=== PATIENT | female | born 1960 | race Caucasian/White ===

== ENCOUNTER 2016-09-15 20:26 | Inpatient (IN) | payer MEDICAID ==
[~2016-09-15] VITALS: Ht 149.9 cm; Wt 57.6 kg
[2016-09-15] MEDS ORDERED: DUONEB INH ONE (21:29)
[2016-09-15] MEDS ORDERED: SODIUM CHLORIDE 0.9% 250 ML IV ONE (23:41)
[2016-09-15] MEDS ORDERED: METHYLPRED SOD SUCC 125 MG/2 ML VIAL ONE (23:41)
[2016-09-15] MEDS ORDERED: AZITHROMYCIN 500 MG VIAL IV ONE (23:41)
[2016-09-15] MEDS ORDERED: NEB-ALBUTEROL 2.5 MG/3 ML INH ONE ×2 (23:43)
[2016-09-16] VITALS (8 sets, daily range): BP systolic 126–152; RESP 16–20; TEMP 97.7–98.2; Ht 149.9 cm; Wt 57.6 kg
[2016-09-16] MEDS ORDERED: NEB-ALBUTEROL 2.5 MG/3 ML INH PRN (03:55)
[2016-09-16] MEDS ORDERED: MAG HYDROX 30 ML UDC PO PRN (03:55)
[2016-09-16] MEDS ORDERED: BENZONATATE 100 MG CAP PO PRN (03:55)
[2016-09-16] MEDS ORDERED: MORPHINE 2 MG/ML SYR IV PRN (03:55)
[2016-09-16] MEDS ORDERED: ONDANSETRON 4 MG VIAL IV PRN (03:55)
[2016-09-16] MEDS ORDERED: BISACODYL 10 MG SUPP RECTAL PRN (03:55)
[2016-09-16] MEDS ORDERED: ACETAMINOPHEN 325 MG TAB PO PRN (03:55)
[2016-09-16] MEDS ORDERED: SALINE FLUSH 10 ML FLUSH PRN (03:55)
[2016-09-16] MEDS: NEB-ATROVENT INH SCH ×4 (05:03→23:32)
[2016-09-16] MEDS: NEB-BUDESONIDE 0.5 MG INH SCH ×2 (05:03→20:31)
[2016-09-16] MEDS: SODIUM CHLORIDE 0.9% FLUSH BAG 500 ML IV SCH (05:34)
[2016-09-16] MEDS: PANTOPRAZOLE 40 MG TAB PO SCH (06:31)
[2016-09-16] MEDS: SALINE FLUSH 10 ML FLUSH SCH ×2 (08:00→19:55)
[2016-09-16] MEDS: LEVOTHYROXINE 0.05 MG TAB PO SCH (08:02)
[2016-09-16] MEDS: LEVOFLOXACIN 750 MG/150 ML 150 ML IV SCH (08:03)
[2016-09-16] MEDS ORDERED: LEVOFLOXACIN 750 MG/150 ML 150 ML IV SCH (09:00)
[2016-09-16] MEDS: BUPROPION XL 150 MG TAB PO SCH (09:19)
[2016-09-16] MEDS: amLODIPine 5 MG TAB PO SCH (09:19)
[2016-09-16] MEDS: ASPIRIN EC 81 MG TAB PO SCH (09:19)
[2016-09-16] MEDS: GABAPENTIN 400 MG CAP PO SCH ×4 (09:19→19:54)
[2016-09-16] MEDS: Hydrocodone/APAP 10/325 MG TAB PO PRN ×3 (12:05→23:36)
[2016-09-16] MEDS: SODIUM CHLORIDE 0.9% 1,000 ML IV SCH ×2 (12:39→16:58)
[2016-09-16] MEDS: LORAZEPAM 0.5 MG TAB PO PRN (15:36)
[2016-09-17] VITALS (7 sets, daily range): BP systolic 126–165; RESP 16–18; TEMP 97.3–97.8
[2016-09-17] MEDS: SODIUM CHLORIDE 0.9% 1,000 ML IV SCH (01:42)
[2016-09-17] MEDS: PANTOPRAZOLE 40 MG TAB PO SCH (06:12)
[2016-09-17] MEDS: SODIUM CHLORIDE 0.9% FLUSH BAG 500 ML IV SCH (06:12)
[2016-09-17] MEDS: NEB-ATROVENT INH SCH ×3 (07:16→19:13)
[2016-09-17] MEDS: NEB-BUDESONIDE 0.5 MG INH SCH ×2 (07:16→19:13)
[2016-09-17] MEDS: amLODIPine 5 MG TAB PO SCH (08:09)
[2016-09-17] MEDS: GABAPENTIN 400 MG CAP PO SCH ×4 (08:09→22:10)
[2016-09-17] MEDS: BUPROPION XL 150 MG TAB PO SCH (08:09)
[2016-09-17] MEDS: ASPIRIN EC 81 MG TAB PO SCH (08:09)
[2016-09-17] MEDS: LEVOTHYROXINE 0.05 MG TAB PO SCH (08:09)
[2016-09-17] MEDS: SALINE FLUSH 10 ML FLUSH SCH ×2 (08:10→22:12)
[2016-09-17] MEDS: Hydrocodone/APAP 10/325 MG TAB PO PRN ×4 (08:10→22:11)
[2016-09-17] MEDS: NYSTATIN 500,000 UNITS/5 ML SUSP SWISH.SWAL SCH ×3 (15:13→22:09)
[2016-09-17] MEDS: LORAZEPAM 0.5 MG TAB PO PRN (15:56)
[2016-09-18] MEDS: NEB-ATROVENT INH SCH ×5 (00:09→23:30)
[2016-09-18] MEDS: ALU/MAG/SIM 30 ML UDC PO PRN (00:36)
[2016-09-18] MEDS: Hydrocodone/APAP 10/325 MG TAB PO PRN ×5 (02:56→23:15)
[2016-09-18 03:47] VITALS: BP_SYST 141; RESP 18; TEMP 97.6
[2016-09-18] MEDS: NEB-BUDESONIDE 0.5 MG INH SCH ×2 (06:34→19:38)
[2016-09-18] MEDS: SODIUM CHLORIDE 0.9% FLUSH BAG 500 ML IV SCH (06:49)
[2016-09-18] MEDS: PANTOPRAZOLE 40 MG TAB PO SCH (06:49)
[2016-09-18 07:34] VITALS: BP_SYST 149; RESP 20; TEMP 97.3
[2016-09-18] MEDS: LEVOFLOXACIN 750 MG/150 ML 150 ML IV SCH (08:21)
[2016-09-18] MEDS: BUPROPION XL 150 MG TAB PO SCH (08:22)
[2016-09-18] MEDS: SALINE FLUSH 10 ML FLUSH SCH ×2 (08:22→20:15)
[2016-09-18] MEDS: GABAPENTIN 400 MG CAP PO SCH ×4 (08:22→20:14)
[2016-09-18] MEDS: amLODIPine 5 MG TAB PO SCH (08:23)
[2016-09-18] MEDS: NYSTATIN 500,000 UNITS/5 ML SUSP SWISH.SWAL SCH ×4 (08:23→20:14)
[2016-09-18] MEDS: ASPIRIN EC 81 MG TAB PO SCH (08:23)
[2016-09-18] MEDS: LEVOTHYROXINE 0.05 MG TAB PO SCH (08:23)
[2016-09-18 11:10] VITALS: BP_SYST 124; RESP 16; TEMP 97.4
[2016-09-18 15:50] VITALS: BP_SYST 138; RESP 18; TEMP 97.4
[2016-09-18] MEDS: LORAZEPAM 0.5 MG TAB PO PRN (16:52)
[2016-09-18 19:15] VITALS: BP_SYST 126; RESP 20; TEMP 97.7
[2016-09-18 23:30] VITALS: BP_SYST 121; RESP 16; TEMP 97.3
[2016-09-19 03:07] VITALS: BP_SYST 122; RESP 18; TEMP 97.9
[2016-09-19] MEDS: Hydrocodone/APAP 10/325 MG TAB PO PRN ×4 (03:22→18:50)
[2016-09-19] MEDS: SODIUM CHLORIDE 0.9% FLUSH BAG 500 ML IV SCH (06:03)
[2016-09-19] MEDS: PANTOPRAZOLE 40 MG TAB PO SCH (06:07)
[2016-09-19 07:40] VITALS: BP_SYST 154; RESP 20; TEMP 97.4
[2016-09-19] MEDS: NEB-BUDESONIDE 0.5 MG INH SCH ×2 (07:57→19:55)
[2016-09-19] MEDS: NEB-ATROVENT INH SCH ×4 (07:57→23:39)
[2016-09-19] MEDS: SALINE FLUSH 10 ML FLUSH SCH ×2 (08:11→20:30)
[2016-09-19] MEDS: LEVOTHYROXINE 0.05 MG TAB PO SCH (08:12)
[2016-09-19] MEDS: GABAPENTIN 400 MG CAP PO SCH ×4 (08:12→20:29)
[2016-09-19] MEDS: ASPIRIN EC 81 MG TAB PO SCH (08:12)
[2016-09-19] MEDS: amLODIPine 5 MG TAB PO SCH (08:12)
[2016-09-19] MEDS: BUPROPION XL 150 MG TAB PO SCH (08:13)
[2016-09-19] MEDS: NYSTATIN 500,000 UNITS/5 ML SUSP SWISH.SWAL SCH ×4 (08:13→20:30)
[2016-09-19 11:46] VITALS: BP_SYST 125; RESP 18; TEMP 97.3
[2016-09-19 15:32] VITALS: BP_SYST 118; RESP 18; TEMP 97.4
[2016-09-19 19:32] VITALS: BP_SYST 143; RESP 20; TEMP 97.9
[2016-09-19] MEDS: NEB-NACL 3% 4 ML NEBU INH SCH ×2 (19:57→23:39)
[2016-09-19] MEDS: PSEUDOEPHEDRINE PO SCH (20:29)
[2016-09-19] MEDS: ALU/MAG/SIM 30 ML UDC PO PRN (20:29)
[2016-09-19] MEDS: MONTELUKAST 10 MG TAB PO SCH (20:29)
[2016-09-19] MEDS: FEXOFENADINE PO SCH (20:29)
[2016-09-19] MEDS ORDERED: MISSING DOSE XX ONE (20:40)
[2016-09-19 23:53] VITALS: BP_SYST 112; RESP 20; TEMP 97.6
[2016-09-20] MEDS: Hydrocodone/APAP 10/325 MG TAB PO PRN ×6 (00:18→22:47)
[2016-09-20] MEDS: BISACODYL EC 5 MG TAB PO PRN (00:18)
[2016-09-20 03:56] VITALS: BP_SYST 113; RESP 18; TEMP 97.8
[2016-09-20] MEDS: PANTOPRAZOLE 40 MG TAB PO SCH (04:44)
[2016-09-20] MEDS: SODIUM CHLORIDE 0.9% FLUSH BAG 500 ML IV SCH (04:45)
[2016-09-20] MEDS: NEB-BUDESONIDE 0.5 MG INH SCH ×2 (07:43→18:03)
[2016-09-20] MEDS: NEB-NACL 3% 4 ML NEBU INH SCH ×3 (07:43→18:03)
[2016-09-20] MEDS: NEB-ATROVENT INH SCH ×4 (07:43→23:14)
[2016-09-20 08:03] VITALS: BP_SYST 126; RESP 20; TEMP 98
[2016-09-20] MEDS: SALINE FLUSH 10 ML FLUSH SCH ×2 (08:49→20:46)
[2016-09-20] MEDS: LEVOFLOXACIN 750 MG/150 ML 150 ML IV SCH (08:50)
[2016-09-20] MEDS: GABAPENTIN 400 MG CAP PO SCH ×4 (08:51→20:45)
[2016-09-20] MEDS: NYSTATIN 500,000 UNITS/5 ML SUSP SWISH.SWAL SCH ×4 (08:52→20:44)
[2016-09-20] MEDS: ASPIRIN EC 81 MG TAB PO SCH (08:52)
[2016-09-20] MEDS: BUPROPION XL 150 MG TAB PO SCH (08:52)
[2016-09-20] MEDS: FEXOFENADINE PO SCH ×2 (08:53→20:45)
[2016-09-20] MEDS: PSEUDOEPHEDRINE PO SCH ×2 (08:53→20:45)
[2016-09-20] MEDS: LEVOTHYROXINE 0.05 MG TAB PO SCH (08:53)
[2016-09-20] MEDS: amLODIPine 5 MG TAB PO SCH (08:53)
[2016-09-20] MEDS: LORAZEPAM 0.5 MG TAB PO PRN ×2 (10:55→22:43)
[2016-09-20] MEDS ORDERED: MISSING DOSE XX ONE ×3 (11:05→14:15)
[2016-09-20 11:17] VITALS: BP_SYST 113; RESP 16; TEMP 97.6
[2016-09-20] MEDS: METHYLPRED SOD SUCC 40 MG VIAL IV SCH ×3 (11:59→23:15)
[2016-09-20] MEDS ORDERED: NON-FORMULARY MEDICATION PO PRN (14:25)
[2016-09-20] MEDS ORDERED: *PINK BRACELET XX ONE (14:35)
[2016-09-20] MEDS: LINZESS 290 MCG PO PRN (14:37)
[2016-09-20 15:42] VITALS: BP_SYST 125; RESP 20; TEMP 98.2
[2016-09-20] MEDS: ALU/MAG/SIM 30 ML UDC PO PRN (16:18)
[2016-09-20 19:34] VITALS: BP_SYST 104; RESP 20; TEMP 97.5
[2016-09-20] MEDS: *HOME MEDS IN MED CART XX SCH (20:00)
[2016-09-20] MEDS: MONTELUKAST 10 MG TAB PO SCH (20:45)
[2016-09-20 22:55] VITALS: BP_SYST 125; RESP 18; TEMP 97.5
[2016-09-21] MEDS: NEB-NACL 3% 4 ML NEBU INH SCH ×5 (00:30→23:39)
[2016-09-21] MEDS: Hydrocodone/APAP 10/325 MG TAB PO PRN ×4 (02:50→18:33)
[2016-09-21 04:01] VITALS: BP_SYST 126; RESP 20; TEMP 97.3
[2016-09-21] MEDS: SODIUM CHLORIDE 0.9% FLUSH BAG 500 ML IV SCH (05:16)
[2016-09-21] MEDS: METHYLPRED SOD SUCC 40 MG VIAL IV SCH ×4 (05:16→23:09)
[2016-09-21] MEDS: PANTOPRAZOLE 40 MG TAB PO SCH (05:21)
[2016-09-21 07:06] VITALS: BP_SYST 119; RESP 16; TEMP 97.3
[2016-09-21] MEDS: NEB-ATROVENT INH SCH ×4 (07:22→23:39)
[2016-09-21] MEDS: NEB-BUDESONIDE 0.5 MG INH SCH ×2 (07:22→18:53)
[2016-09-21] MEDS: *HOME MEDS IN MED CART XX SCH ×2 (08:00→20:00)
[2016-09-21] MEDS: ASPIRIN EC 81 MG TAB PO SCH (09:46)
[2016-09-21] MEDS: GABAPENTIN 400 MG CAP PO SCH ×4 (09:46→20:16)
[2016-09-21] MEDS: amLODIPine 5 MG TAB PO SCH (09:46)
[2016-09-21] MEDS: PSEUDOEPHEDRINE PO SCH ×2 (09:46→20:16)
[2016-09-21] MEDS: BUPROPION XL 150 MG TAB PO SCH (09:46)
[2016-09-21] MEDS: BISACODYL EC 5 MG TAB PO PRN (09:46)
[2016-09-21] MEDS: FEXOFENADINE PO SCH ×2 (09:46→20:16)
[2016-09-21] MEDS: LEVOTHYROXINE 0.05 MG TAB PO SCH (09:46)
[2016-09-21] MEDS: SALINE FLUSH 10 ML FLUSH SCH ×2 (09:47→20:16)
[2016-09-21] MEDS: NYSTATIN 500,000 UNITS/5 ML SUSP SWISH.SWAL SCH ×4 (09:48→20:16)
[2016-09-21] MEDS: LINZESS 290 MCG PO PRN (09:49)
[2016-09-21 11:14] VITALS: BP_SYST 106; RESP 16; TEMP 98.1
[2016-09-21] MEDS: ALU/MAG/SIM 30 ML UDC PO PRN ×2 (15:00→18:32)
[2016-09-21 15:03] VITALS: BP_SYST 104; RESP 20; TEMP 97.9
[2016-09-21 19:53] VITALS: BP_SYST 134; RESP 20; TEMP 98.1
[2016-09-21] MEDS: MONTELUKAST 10 MG TAB PO SCH (20:16)
[2016-09-21] MEDS ORDERED: NEB-Levalbuterol 0.31 MG/3 ML NEBU INH PRN (21:40)
[2016-09-21] MEDS: LORAZEPAM 0.5 MG TAB PO PRN (23:08)
[2016-09-22 00:09] VITALS: BP_SYST 126; RESP 20; TEMP 97.7
[2016-09-22 04:00] VITALS: BP_SYST 149; RESP 18; TEMP 97.4
[2016-09-22] MEDS: METHYLPRED SOD SUCC 40 MG VIAL IV SCH ×4 (06:04→23:56)
[2016-09-22] MEDS: PANTOPRAZOLE 40 MG TAB PO SCH (06:04)
[2016-09-22] MEDS: SODIUM CHLORIDE 0.9% FLUSH BAG 500 ML IV SCH (06:04)
[2016-09-22] MEDS ORDERED: PHARMACY TO DOSE VANCOMYCIN IV SCH (07:20)
[2016-09-22] MEDS: NEB-ATROVENT INH SCH ×4 (07:28→23:29)
[2016-09-22] MEDS: NEB-BUDESONIDE 0.5 MG INH SCH ×2 (07:28→19:31)
[2016-09-22] MEDS: NEB-NACL 3% 4 ML NEBU INH SCH ×4 (07:29→23:30)
[2016-09-22 07:52] VITALS: BP_SYST 128; RESP 20; TEMP 97.1
[2016-09-22] MEDS: *HOME MEDS IN MED CART XX SCH ×2 (08:00→19:46)
[2016-09-22] MEDS: SALINE FLUSH 10 ML FLUSH SCH ×2 (08:39→19:42)
[2016-09-22] MEDS: VANCOMYCIN 750 MG in SODIUM CHLORIDE 0.9% 250 ML IV SCH ×2 (08:40→19:42)
[2016-09-22] MEDS: BUPROPION XL 150 MG TAB PO SCH (08:40)
[2016-09-22] MEDS: amLODIPine 5 MG TAB PO SCH (08:41)
[2016-09-22] MEDS: LEVOTHYROXINE 0.05 MG TAB PO SCH (08:41)
[2016-09-22] MEDS: FEXOFENADINE PO SCH ×2 (08:41→21:22)
[2016-09-22] MEDS: NYSTATIN 500,000 UNITS/5 ML SUSP SWISH.SWAL SCH ×4 (08:41→21:22)
[2016-09-22] MEDS: GABAPENTIN 400 MG CAP PO SCH ×4 (08:41→21:22)
[2016-09-22] MEDS: ASPIRIN EC 81 MG TAB PO SCH (08:41)
[2016-09-22] MEDS: PSEUDOEPHEDRINE PO SCH ×2 (08:41→21:22)
[2016-09-22] MEDS: Hydrocodone/APAP 10/325 MG TAB PO PRN ×3 (09:11→19:41)
[2016-09-22 11:38] VITALS: BP_SYST 134; RESP 20; TEMP 97.1
[2016-09-22] MEDS: LEVOFLOXACIN 750 MG/150 ML 150 ML IV SCH (12:25)
[2016-09-22] MEDS: LORAZEPAM 0.5 MG TAB PO PRN ×2 (14:24→21:22)
[2016-09-22 16:20] VITALS: BP_SYST 130; RESP 20; TEMP 96.6
[2016-09-22] MEDS: ALU/MAG/SIM 30 ML UDC PO PRN (17:03)
[2016-09-22 20:36] VITALS: BP_SYST 136; RESP 20; TEMP 97.8
[2016-09-22] MEDS: MONTELUKAST 10 MG TAB PO SCH (21:23)
[2016-09-23] VITALS (7 sets, daily range): BP systolic 122–146; RESP 16–20; TEMP 97.3–98.3
[2016-09-23] MEDS: SODIUM CHLORIDE 0.9% FLUSH BAG 500 ML IV SCH (05:07)
[2016-09-23] MEDS: Hydrocodone/APAP 10/325 MG TAB PO PRN ×4 (05:08→20:40)
[2016-09-23] MEDS: METHYLPRED SOD SUCC 40 MG VIAL IV SCH ×2 (06:01→12:50)
[2016-09-23] MEDS: PANTOPRAZOLE 40 MG TAB PO SCH (06:02)
[2016-09-23] MEDS: NEB-BUDESONIDE 0.5 MG INH SCH ×2 (08:00→18:55)
[2016-09-23] MEDS: NEB-NACL 3% 4 ML NEBU INH SCH ×4 (08:00→23:08)
[2016-09-23] MEDS: NEB-ATROVENT INH SCH ×4 (08:00→23:08)
[2016-09-23] MEDS: *HOME MEDS IN MED CART XX SCH ×2 (08:00→20:00)
[2016-09-23] MEDS ORDERED: MISSING DOSE XX ONE ×3 (08:05→19:55)
[2016-09-23] MEDS: NYSTATIN 500,000 UNITS/5 ML SUSP SWISH.SWAL SCH ×4 (08:43→20:41)
[2016-09-23] MEDS: BUPROPION XL 150 MG TAB PO SCH (08:44)
[2016-09-23] MEDS: FEXOFENADINE PO SCH ×2 (08:44→20:41)
[2016-09-23] MEDS: LEVOTHYROXINE 0.05 MG TAB PO SCH (08:44)
[2016-09-23] MEDS: PSEUDOEPHEDRINE PO SCH ×2 (08:44→20:41)
[2016-09-23] MEDS: GABAPENTIN 400 MG CAP PO SCH ×4 (08:44→20:40)
[2016-09-23] MEDS: amLODIPine 5 MG TAB PO SCH (08:44)
[2016-09-23] MEDS: VANCOMYCIN 750 MG in SODIUM CHLORIDE 0.9% 250 ML IV SCH ×2 (08:45→20:38)
[2016-09-23] MEDS: ASPIRIN EC 81 MG TAB PO SCH (08:45)
[2016-09-23] MEDS: SALINE FLUSH 10 ML FLUSH SCH ×2 (08:46→20:38)
[2016-09-23] MEDS: MONTELUKAST 10 MG TAB PO SCH (20:40)
[2016-09-23] MEDS: LORAZEPAM 0.5 MG TAB PO PRN (20:41)
[2016-09-24 04:11] VITALS: BP_SYST 132; RESP 16; TEMP 98.4
[2016-09-24] MEDS: SODIUM CHLORIDE 0.9% FLUSH BAG 500 ML IV SCH (04:41)
[2016-09-24] MEDS: Hydrocodone/APAP 10/325 MG TAB PO PRN ×5 (04:42→22:11)
[2016-09-24] MEDS: PANTOPRAZOLE 40 MG TAB PO SCH (04:42)
[2016-09-24] MEDS: NEB-ATROVENT INH SCH ×3 (06:30→17:09)
[2016-09-24] MEDS: NEB-NACL 3% 4 ML NEBU INH SCH ×3 (06:30→17:08)
[2016-09-24] MEDS: NEB-BUDESONIDE 0.5 MG INH SCH ×3 (06:58→17:22)
[2016-09-24] MEDS: *HOME MEDS IN MED CART XX SCH ×2 (07:27→19:53)
[2016-09-24] MEDS ORDERED: MISSING DOSE XX ONE (07:30)
[2016-09-24 07:49] VITALS: BP_SYST 130; RESP 18; TEMP 98.2
[2016-09-24] MEDS: BUPROPION XL 150 MG TAB PO SCH (08:56)
[2016-09-24] MEDS: PREDNISONE 20 MG TAB PO SCH (08:56)
[2016-09-24] MEDS: ASPIRIN EC 81 MG TAB PO SCH (08:56)
[2016-09-24] MEDS: GABAPENTIN 400 MG CAP PO SCH ×4 (08:56→21:19)
[2016-09-24] MEDS: FEXOFENADINE PO SCH ×2 (08:56→21:19)
[2016-09-24] MEDS: PSEUDOEPHEDRINE PO SCH ×2 (08:56→21:19)
[2016-09-24] MEDS: amLODIPine 5 MG TAB PO SCH (08:56)
[2016-09-24] MEDS: SALINE FLUSH 10 ML FLUSH SCH ×2 (08:56→21:18)
[2016-09-24] MEDS: LEVOTHYROXINE 0.05 MG TAB PO SCH (08:56)
[2016-09-24] MEDS: NYSTATIN 500,000 UNITS/5 ML SUSP SWISH.SWAL SCH ×2 (08:57→14:01)
[2016-09-24] MEDS: LINZESS 290 MCG PO PRN (09:36)
[2016-09-24] MEDS: VANCOMYCIN 750 MG in SODIUM CHLORIDE 0.9% 250 ML IV SCH (10:52)
[2016-09-24] MEDS: VANCOMYCIN 1,000 MG in SODIUM CHLORIDE 0.9% 250 ML IV SCH ×2 (10:55→23:13)
[2016-09-24 12:53] VITALS: BP_SYST 136; RESP 18; TEMP 98
[2016-09-24 15:43] VITALS: BP_SYST 132; RESP 20; TEMP 98
[2016-09-24] MEDS ORDERED: VANCOMYCIN 1,000 MG in SODIUM CHLORIDE 0.9% 250 ML IV SCH (20:00)
[2016-09-24 20:08] VITALS: BP_SYST 134; RESP 18; TEMP 97.6
[2016-09-24] MEDS: MONTELUKAST 10 MG TAB PO SCH (21:19)
[2016-09-25 00:19] VITALS: BP_SYST 138; RESP 18; TEMP 97.9
[2016-09-25] MEDS: LORAZEPAM 0.5 MG TAB PO PRN ×2 (01:19→11:17)
[2016-09-25 02:54] VITALS: BP_SYST 138; RESP 18; TEMP 96
[2016-09-25] MEDS: Hydrocodone/APAP 10/325 MG TAB PO PRN ×3 (04:01→12:32)
[2016-09-25] MEDS: NEB-ATROVENT INH SCH ×3 (05:12→12:11)
[2016-09-25] MEDS: NEB-BUDESONIDE 0.5 MG INH SCH (05:12)
[2016-09-25] MEDS: NEB-NACL 3% 4 ML NEBU INH SCH ×3 (05:12→12:11)
[2016-09-25] MEDS: PANTOPRAZOLE 40 MG TAB PO SCH (06:33)
[2016-09-25] MEDS: SODIUM CHLORIDE 0.9% FLUSH BAG 500 ML IV SCH (06:34)
[2016-09-25] MEDS: *HOME MEDS IN MED CART XX SCH (08:00)
[2016-09-25] MEDS: GABAPENTIN 400 MG CAP PO SCH ×2 (08:09→12:27)
[2016-09-25] MEDS: PSEUDOEPHEDRINE PO SCH (08:09)
[2016-09-25] MEDS: PREDNISONE 20 MG TAB PO SCH (08:09)
[2016-09-25] MEDS: amLODIPine 5 MG TAB PO SCH (08:09)
[2016-09-25] MEDS: FEXOFENADINE PO SCH (08:09)
[2016-09-25] MEDS: LEVOTHYROXINE 0.05 MG TAB PO SCH (08:09)
[2016-09-25] MEDS: BUPROPION XL 150 MG TAB PO SCH (08:09)
[2016-09-25] MEDS: ASPIRIN EC 81 MG TAB PO SCH (08:09)
[2016-09-25] MEDS: SALINE FLUSH 10 ML FLUSH SCH (08:13)
[2016-09-25 08:25] VITALS: BP_SYST 130; RESP 18; TEMP 97.4
[2016-09-25 11:10] VITALS: BP_SYST 138; RESP 18; TEMP 98
[2016-09-25] MEDS: VANCOMYCIN 1,000 MG in SODIUM CHLORIDE 0.9% 250 ML IV SCH ×2 (11:27→11:32)
[2016-09-25] MEDS: LINZESS 290 MCG PO PRN (12:05)
[2016-09-25 15:37] VITALS: BP_SYST 128; RESP 18; TEMP 97.9
[2016-09-25 15:58] VITALS: BP_SYST 128; RESP 18; TEMP 97.9
== END 2016-09-25 16:37 | disposition home health service (06) | DRG 189 ==
LOC: ENRESERV → ENRESERVTM → ENRESERVDT → ER 20:26 → EMR 20:27 → 4NT 09-16 03:24 → OBSVTOIN 09-17 13:36 → ENPENDDIS 09-17 13:36
PROVIDERS: ADMIT Internal Medicine; ATTEND Internal Medicine
CPT/HCPCS: 31720; 36415; 71010; 71250; 80048; 80053; 82553; 82947; 83880; 84484; 85007; 85025; 85027; 85610; 85730; 86606; 87071; 87305; 87449; 93005; 94640; 94667; 94668; 94799; 96365; 96366; 96375; 99220; 99223; 99232; 99233

== ENCOUNTER 2016-10-09 17:14 | Emergency (ER) | payer MEDICAID | END 2016-10-09 20:59 | disposition home or self-care (01) | LOC: ER 17:14 | DX: S52.501A Unspecified fracture of the lower end of right radius, initial encounter for closed fracture (principal); S00.83XA Contusion of other part of head, initial encounter; W18.30XA Fall on same level, unspecified, initial encounter; Y92.009 Unspecified place in unspecified non-institutional (private) residence as the place of occurrence of the external cause | CPT/HCPCS: 70450; 72125 ==